=== PATIENT | female | born 1995 | race Caucasian/White ===

== ENCOUNTER → 2021-09-20 09:50 | Outpatient (CLI) | payer OTHER, SELFPAY ==
--- NOTE | ~2021-09-20 | US_ITS ---
US breast BI complete DATE: 09/20/2021 10:21 INDICATION: Right breast lump, smaller than one year ago, reportedly a adenoma TECHNIQUE: Real-time imaging and color flow imaging of both breasts, including all 4 quadrants and [place] bareolar areas COMPARISON: None FINDINGS: No suspicious mass or shadowing of either breast is evident. The following findings are not ed: Right breast: 12:00 8 cm from nipple: Parallel circumscribed relatively isoechoic solid lesion measuring 9 x 13 x 1 9 mm dimension, with minimal internal vascularity on color flow imaging. There are no posterior featu res, no posterior shadowing. The patient reports that this is smaller in size. Comparison with prior ultrasound imaging is recommended. Left breast: 2:00 9 cm from nipple: Parallel circumscribed 8 x 5 x 5.3 x 9.8 mm sonolucency with through transmiss ion and posterior enhancement, consistent with simple cyst 2:00 9 cm from nipple: 3.1 x 2.3 x 3.2 mm sonolucency, consistent with small cyst 2:00 8 cm from nipple: 5.4 x 4.3 x 4.7 mm sonolucency with through transmission, consistent with cyst IMPRESSION: BI-RADS Category 0: Incomplete; need additional imaging evaluation Recommendation: Comparison with prior breast imaging examination(s ) Reviewed, dictated and finalized at [facility]. Reviewed, dictated and finalized at [facility].
== END ==
PROVIDERS: PCP Student in an Organized Health Care Education/Training Program; Visit Provider Student in an Organized Health Care Education/Training Program
DX: N63.0 Unspecified lump in unspecified breast (principal); R92.8 Other abnormal and inconclusive findings on diagnostic imaging of breast
CPT/HCPCS: 76641